=== PATIENT | female | born 1965 | race Two or more races ===

== ENCOUNTER 2016-08-15 20:36 | Emergency (ER) | payer SELFPAY ==
[~2016-08-15] VITALS: Ht 160 cm; Wt 83.9 kg
[2016-08-15] MEDS ORDERED: IV SET PRIMARY 1 EA INFUS.SET MC ONE (21:04)
[2016-08-15] MEDS ORDERED: IV NS 0.9% 1,000 ML ONE (21:04)
[2016-08-15 21:10] LABS: BASOPHILS # (AUTO) 0.1 /CMM (0.0-0.2); BASOPHILS % (AUTO) 0.6 % (0.0-2.0); DIFF TOTAL % 100 %; EOSINOPHILS # (AUTO) 0.1 /CMM (0.0-0.7); EOSINOPHILS % (AUTO) 1.1 % (0.0-6.0); HEMATOCRIT 40 % (33-45); HEMOGLOBIN 13.3 g/dL (11.5-14.8); LYMPHOCYTES # (AUTO) 3.3 /CMM (0.8-4.8); LYMPHOCYTES % (AUTO) 31.8 % (20.0-44.0); MEAN CORPUSCULAR HEMOGLOBIN 30 PG (26.0-33.0); MEAN CORPUSCULAR HGB CONC 33 g/dl (31.0-36.0); MEAN CORPUSCULAR VOLUME 89 fL (82-100); MONOCYTES # (AUTO) 0.6 /CMM (0.1-1.30); MONOCYTES % (AUTO) 6.1 % (2.0-12.0); NEUTROPHILS # (AUTO) 6.4 /CMM (1.8-8.9); NEUTROPHILS % (AUTO) 60.4 % (43.0-81.0); PLATELET COUNT (AUTO) 311 /CMM (150-450); RED BLOOD CELL COUNT(AUTO) 4.51 MIL/uL (4.0-5.2); WHITE BLOOD COUNT (AUTO) 10.5 K/uL (4.3-11.0)
[2016-08-15 21:27] LABS: ANION GAP 13 (5-14); CARBON DIOXIDE 25 mmol/L (21-32); CHLORIDE 104 mmol/L (98-107); CREATININE 0.7 mg/dL (0.6-1.3); GFR 88 mL/min (>60); GLUCOSE 125 mg/dL (74-106); POTASSIUM 3.8 mmol/L (3.5-5.1); SODIUM SERUM 138 mmol/L (136-145); UREA NITROGEN, BLOOD 24 mg/dL (7-18)
[2016-08-15] MEDS ORDERED: IV NS 0.9% 1,000 ML BAG IV ONE (21:30)
[2016-08-15 21:32] LABS: INR 1.05 (0.87-1.13)
[2016-08-15 21:39] LABS: TROPONIN I < 0.017 ng/mL (0.00-0.056)
[2016-08-15 22:20] LABS: ADD UA MICROSCOPIC NO; KETONES,URINE NEGATIVE (NEGATIVE); LEUKOCYTE ESTERASE ,URINE NEGATIVE (NEGATIVE)
[2016-08-15 23:12] VITALS: BP 131/78
== END 2016-08-15 23:13 | disposition left against medical advice (07) ==
LOC: ER 20:40
DX: R55 Syncope and collapse (principal); E78.00 Pure hypercholesterolemia, unspecified; K21.9 Gastro-esophageal reflux disease without esophagitis; H26.9 Unspecified cataract
CPT/HCPCS: 36415; 71010; 80048; 81001; 84484; 85025; 85730; 93005; 96360; 99285; A4606; J7030; Z7610; 81000-TC